=== PATIENT | female | born 1935 | race Hispanic/Latino ===

== ENCOUNTER 2016-06-21 15:37 | Emergency (ER) | payer OTHER ==
[2016-06-21 15:44] VITALS: BP 132/68; RESP 16; TEMP 97.9; BMI 28.9
[2016-06-21] MEDS ORDERED: TDAP Vaccine 0.5 mL Syr IM ONE (15:52)
--- NOTE | 2016-06-21 15:56 | ED PDOC ---
Arrival/HPI - General Chief Complaint: Trauma Time Seen by Provider: 06/21/16 15:46 Historian: Patient - History of Present Illness Narrative History of Present Illness (Text): 06/21/16 15:53 80yo female with multiple co morbidities BIBA for facial laceration s/p trauma. 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 She notes that she fell faceward. Complaining of facial pain in ED. Denies LOC, dizziness, nausea, vomiting, focal weakness. States she is not up to date with her TD vaccine. Past Medical History - Provider Review Nursing Documentation Reviewed: Yes - Cardiac Hx Cardiac Disorders: Yes Other/Comment: heart bypass - Pulmonary Hx Respiratory Disorders: No - Neurological Other/Comment: head metal plate, mennengioma - HEENT Hx HEENT Disorder: No - Renal Hx Renal Disorder: No - Endocrine/Metabolic Hx Endocrine Disorders: No - Hematological/Oncological Hx Blood Disorders: No - Integumentary Hx Dermatological Disorder: No - Musculoskeletal/Rheumatological Hx Musculoskeletal Disorders: No - Gastrointestinal Hx Gastrointestinal Disorders: No - Genitourinary/Gynecological Hx Genitourinary Disorders: No - Psychiatric Hx Psychophysiologic Disorder: No Hx Substance Use: No - Surgical History Hx Hysterectomy: Yes - Anesthesia Hx Anesthesia: Yes Hx Anesthesia Reactions: No Family/Social History - Physician Review Nursing Documentation Reviewed: Yes Family/Social History: Unknown Family HX Smoking Status: Never Smoked Hx Alcohol Use: No Hx Substance Use: No Allergies/Home Meds Allergies/Adverse Reactions: Allergies Sulfa (Sulfonamide Antibiotics) Allergy (Verified 06/21/16 15:44) RASH Home Medications: Home Meds Medication Instructions Recorded Confirmed Aspirin [Aspirin Chewable] 81 mg PO DAILY 06/21/16 06/21/16 Atorvastatin [Lipitor] 20 mg PO DAILY 06/21/16 06/21/16 Carvedilol [Coreg] 6.25 mg PO BID 06/21/16 06/21/16 Citalopram [celeXA] 10 mg PO DAILY 06/21/16 06/21/16 Cyanocobalamin (Vitamin B-12) 1,000 mcg PO DAILY 06/21/16 06/21/16 [B-12] Lisinopril [Zestril] 2.5 mg PO DAILY 06/21/16 06/21/16 metFORMIN [glucOPHAGE] 500 mg PO BID 06/21/16 06/21/16 Review of Systems - Physician Review All systems were reviewed & negative as marked: Yes - Review of Systems Constitutional: Normal Eyes: Normal ENT: Normal Respiratory: Normal Cardiovascular: Normal Gastrointestinal: Normal Genitourinary Female: Normal Musculoskeletal: Normal Skin: Laceration (Facial) Neurological: Normal Endocrine: Normal Hemo/Lymphatic: Normal Psychiatric: Normal Physical Exam Vital Signs Reviewed: Yes Vital Signs Temp Pulse Resp BP Pulse Ox 06/21/16 17:56 80 16 98 06/21/16 15:44 97.9 F 79 16 132/68 99 06/21/16 15:43 97.9 F 79 16 132/68 99 Temperature: Afebrile Blood Pressure: Normal Pulse: Regular Respiratory Rate: Normal Appearance: Positive for: Well-Appearing, Non-Toxic, Comfortable Pain Distress: None Mental Status: Positive for: Alert and Oriented X 3 - Systems Exam Head: Present: Atraumatic, Normocephalic Pupils: Present: PERRL Extroacular Muscles: Present: EOMI, Other (Right periorbital ecchymosis with swelling noted. No TTP) Conjunctiva: Present: Normal Mouth: Present: Moist Mucous Membranes Neck: Present: Normal Range of Motion Respiratory/Chest: Present: Clear to Auscultation, Good Air Exchange. No: Respiratory Distress, Accessory Muscle Use Cardiovascular: Present: Regular Rate and Rhythm, Normal S1, S2. No: Murmurs Abdomen: Present: Normal Bowel Sounds. No: Tenderness, Distention, Peritoneal Signs Back: Present: Normal Inspection Upper Extremity: Present: Normal ROM, NORMAL PULSES, Tenderness (Right proximal shoulder), Neurovascularly Intact. No: Cyanosis, Edema, Swelling, Erythema, Deformity Lower Extremity: Present: NORMAL PULSES, Normal ROM, Tenderness (LEft knee), Neurovascularly Intact. No: Edema, CALF TENDERNESS, Cyanosis, Swelling, Erythema, Deformity, Temperature Abnormalties Neurological: Present: GCS=15, CN II-XII Intact, Speech Normal Skin: Present: Warm, Dry, Normal Color, Laceration (1.7cm transverse linear laceration on upper lid/nasolabial area). No: Rashes Psychiatric: Present: Alert, Oriented x 3, Normal Insight, Normal Concentration Medical Decision Making ED Course and Treatment: 06/22/16 01:02 Pt presented to ED for states history. she was AAO x3. Neurological intact. Laceration was approximated with chromic on inner lip and proline on outer lip. She was placed on prophylactic abcx Head CT was negative Pt complained of right shoulder and left knee pain while in ED. Both right shoulder and left knee xray was negative for any acute finding Result was DW the pt. She was referred to her PMD. TRT ED for any new or worsening symptoms. - RAD Interpretation Radiology Orders: 06/21/16 15:51 HEAD W/O CONTRAST [CT] Stat 06/21/16 15:52 MAXILLOFACIAL W/O CONTRAST [CT] Stat 06/21/16 17:00 SHOULDER RIGHT [RAD] Stat 06/21/16 17:01 KNEE WITH PATELLA LEFT 3 VIEW [RAD] Stat - Medication Orders Current Medication Orders: Discontinued Medications Acetaminophen (Tylenol 325mg Tab) 650 mg PO STAT STA Stop: 06/21/16 15:53 Last Admin: 06/21/16 16:08 Dose: 650 MG MAR Pain/Vitals Document 06/21/16 16:08 [email or web address] (Rec: 06/21/16 16:09 [email or web address] [facility] Pain Reassessment Is This A Pain ReAssessment? No Sleep Is patient sleeping during reassessment? No Presence of Pain Presence of Pain Yes Pain Scale Used Pain Scale Used Numeric Location Upper or Lower Upper Pain Location Body Site lip Description Constant Intensity 8 Pain Behavior Facial Grimacing Aggravating Factors Changing Position Aggravating Factors Changing Position Cephalexin Monohydrate (Keflex) 500 mg PO STAT STA PRN Reason: Protocol Stop: 06/21/16 15:53 Last Admin: 06/21/16 16:09 Dose: 500 MG Tetanus/Reduced Diphtheria/Acell Pertussis (Boostrix Vaccine Inj) 0.5 ml IM .ONCE ONE Stop: 06/21/16 15:53 Last Admin: 06/21/16 16:09 Dose: 0.5 ML MAR Immunization Data Document 06/21/16 16:09 [email or web address] (Rec: 06/21/16 16:10 [email or web address] [facility] [place] Immunization Data Vaccine [employer] Vaccine Lot Number [id number] Vaccine Expiration Date 06/05/18 Site Given Left Deltoid Route Intramuscular Immunization Units ml Procedure: Wound Repair - Consent Obtained Consent obtained: Verbal - Performed by Performed by: Mid-level Provider - Indications Indication(s):: Laceration - Location Location:: Lip Shape:: Linear Dimensions Length cm: 1.7 - Anesthetic Technique Local/Regional Anesthetic:: Lidocaine 1% w/epi (5ml) - Debris Debris:: None - Irrigated Irrigated with ml of normal saline: 50 - Complexity Complexity:: Intermediate (2 layer) - Muscle repiar layer closed with Muscle repair layer closed with:: # (12), Size (3chromic and 6proline), Type ( chromic and nylon), Technique (interrupted), Wound well approximated, Abx ointment applied, Tetanus ordered - Patient tolerated procedure Patient Tolerated Procedure:: Well Disposition/Present on Arrival - Present on Arrival Any Indicators Present on Arrival: No History of DVT/PE: No History of Uncontrolled Diabetes: No Urinary Catheter: No History of Decub. Ulcer: No History Surgical Site Infection Following: None - Disposition Have Diagnosis and Disposition been Completed?: Yes Diagnosis: Facial laceration, Facial contusion, Shoulder pain, Knee pain Disposition: HOME/ ROUTINE Disposition Time: 17:40 Patient Plan: Discharge Condition: STABLE Discharge Instructions (ExitCare): Facial Laceration (ED), Care For Your Stitches (ED), Knee Pain (ED), Shoulder Pain (ED) Additional Instructions: Keep wound clean and dry Follow up with your doctor in 5days for sutures removal Return to ED for redness, purulent discharge, any other complaint. Prescriptions: Cephalexin [cephalexin] 500 mg PO TID #21 cap traMADol [Ultram] 50 mg PO TID #10 tab Referrals: Ernie Bojorquez, [Primary Care Provider] - Follow up with primary
--- NOTE | 2016-06-21 17:19 | CT ---
PROCEDURE: CT HEAD WITHOUT CONTRAST. HISTORY: s/p head injury COMPARISON: None available. TECHNIQUE: Axial computed tomography images were obtained through the head/brain without intravenous contrast. Radiation dose: Total exam DLP = 725 mGy-cm. This CT exam was performed using one or more of the following dose reduction techniques: Automated exposure control, adjustment of the mA and/or kV according to patient size, and/or use of iterative reconstruction technique. FINDINGS: HEMORRHAGE: No intracranial hemorrhage. BRAIN: No mass effect or edema. There is chronic encephalomalacia in the left parietal lobe adjacent to the craniotomy site. VENTRICLES: Unremarkable. No hydrocephalus. CALVARIUM: There is a large craniotomy. There has been a cranioplasty with methylmethacrylate. There is a large amount of small air pockets within this cement. This is of doubtful clinical significance. There is no inflammation in the adjacent scalp to suggest acute infection. PARANASAL SINUSES: Unremarkable as visualized. No significant inflammatory changes. MASTOID AIR CELLS: Unremarkable as visualized. No inflammatory changes. OTHER FINDINGS: None. IMPRESSION: Left parietal encephalomalacia. Extensive left-sided cranioplasty. No acute findings
--- NOTE | 2016-06-21 17:23 | CT ---
PROCEDURE: CT MAXILLOFACIAL BONES WITHOUT CONTRAST HISTORY: s/p trauma COMPARISON: None TECHNIQUE: Contiguous axial CT images of the maxillofacial bones were obtained. Coronal and sagittal reformats were generated. Radiation dose: Total exam DLP = 782 mGy-cm. This CT exam was performed using one or more of the following dose reduction techniques: Automated exposure control, adjustment of the mA and/or kV according to patient size, and/or use of iterative reconstruction technique. FINDINGS: NASAL BONES: Unremarkable. ORBITS: Unremarkable. PARANASAL SINUSES/ MASTOIDS: Clear. MAXILLA: Unremarkable. MANDIBLE/ TEMPOROMANDIBULAR JOINTS: Unremarkable. SKULL BASE: Unremarkable. TEMPORAL BONES: Middle ears and mastoid grossly unremarkable. OTHER FINDINGS: None. IMPRESSION: No acute fracture
[2016-06-21 17:57] VITALS: PULSE 80; O2SAT 98
--- NOTE | 2016-06-22 10:50 | RAD ---
PROCEDURE: Radiographs of the Right Shoulder HISTORY: shoulder pain COMPARISON: No prior. FINDINGS: BONES: Normal. No fracture. JOINTS: Normal. Glenohumeral and acromioclavicular joints preserved. No osteoarthritis. SOFT TISSUES: Normal. OTHER FINDINGS: None. IMPRESSION: Normal radiographs of the right shoulder.
--- NOTE | 2016-06-22 10:51 | RAD ---
PROCEDURE: Left Knee Radiographs. HISTORY: Pain. COMPARISON: None. FINDINGS: BONES: Normal. No fracture. JOINTS: Normal. No osteoarthritis. JOINT EFFUSION: None. OTHER FINDINGS: None. IMPRESSION: Normal radiographs of the left knee.
== END 2016-06-21 17:57 | disposition home or self-care (01) ==
LOC: ED 15:37
DX: S01.511A Laceration without foreign body of lip, initial encounter (principal); W01.0XXA Fall on same level from slipping, tripping and stumbling without subsequent striking against object, initial encounter; Y93.01 Activity, walking, marching and hiking; Y92.480 Sidewalk as the place of occurrence of the external cause; M25.511 Pain in right shoulder; M25.562 Pain in left knee; Z23 Encounter for immunization

== ENCOUNTER 2016-08-17 17:10 | Emergency (ER) | payer OTHER ==
[2016-08-17 17:56] VITALS: TEMP 97.8; O2SAT 100; BMI 22.0
--- NOTE | 2016-08-17 18:02 | ED PDOC ---
Arrival/HPI - General Historian: Patient - General Chief Complaint: Trauma Time Seen by Provider: 08/17/16 17:32 - History of Present Illness Narrative History of Present Illness (Text): 08/17/16 18:03 Patient reports sustaining head and facial trauma when she fell on uneven sidewalk prior to arrival. Patient states that a few months ago she was seen at this emergency room and treated for a similar incident. At the present time she is complaining of abrasions to her face and her right knee, is complaining of pain to her right wrist as well. Otherwise: (-) loss of consciousness, (-) nausea, (-) vomiting, (-) severe headache, (-) other injury, (-) neck pain, (-) subjective neurologic deficit, (+) anticoagulants - takes daily asa. Has history of prior significant head injury. (Deo CAROLINA,Halima Aaron) Past Medical History - Provider Review Nursing Documentation Reviewed: Yes - Tetanus Immunization Tetanus Immunization: Up to Date (received on 06/21/16 here in this ER) - Cardiac Hx Cardiac Disorders: Yes Other/Comment: heart bypass - Pulmonary Hx Respiratory Disorders: No - Neurological Other/Comment: head metal plate, mennengioma - HEENT Hx HEENT Disorder: No - Renal Hx Renal Disorder: No - Endocrine/Metabolic Hx Endocrine Disorders: No - Hematological/Oncological Hx Blood Disorders: No - Integumentary Hx Dermatological Disorder: No - Musculoskeletal/Rheumatological Hx Musculoskeletal Disorders: No - Gastrointestinal Hx Gastrointestinal Disorders: No - Genitourinary/Gynecological Hx Genitourinary Disorders: No - Psychiatric Hx Psychophysiologic Disorder: No Hx Substance Use: No - Surgical History Hx Coronary Artery Bypass Graft: Yes (1990) Hx Hysterectomy: Yes - Anesthesia Hx Anesthesia: Yes Hx Anesthesia Reactions: No Hx Malignant Hyperthermia: No Family/Social History - Physician Review Nursing Documentation Reviewed: Yes Family/Social History: No Known Family HX Smoking Status: Never Smoked Hx Alcohol Use: No Hx Substance Use: No Allergies/Home Meds Allergies/Adverse Reactions: Allergies Sulfa (Sulfonamide Antibiotics) Allergy (Verified 08/17/16 17:13) RASH Home Medications: Home Meds Medication Instructions Recorded Confirmed Aspirin [Aspirin Chewable] 81 mg PO DAILY 06/21/16 08/17/16 Atorvastatin [Lipitor] 20 mg PO DAILY 06/21/16 08/17/16 Carvedilol [Coreg] 6.25 mg PO BID 06/21/16 08/17/16 Citalopram [celeXA] 10 mg PO DAILY 06/21/16 08/17/16 Cyanocobalamin (Vitamin B-12) 1,000 mcg PO DAILY 06/21/16 08/17/16 [B-12] Lisinopril [Zestril] 2.5 mg PO DAILY 06/21/16 08/17/16 metFORMIN [glucOPHAGE] 500 mg PO BID 06/21/16 08/17/16 Review of Systems - Review of Systems Constitutional: Normal. absent: Fatigue, Weight Change, Fevers Respiratory: Normal. absent: SOB, Cough, Sputum Cardiovascular: Normal. absent: Chest Pain, Palpitations, Edema Gastrointestinal: Normal. absent: Abdominal Pain, Stool Changes, Appetite Changes Musculoskeletal: Normal, Arthralgias. absent: Back Pain, Neck Pain Skin: Normal. absent: Rash, Pruritis, Skin Lesions Neurological: Normal. absent: Headache, Dizziness, Focal Weakness Physical Exam - Physical Exam Narrative Physical Exam (Text): 08/17/16 18:05 GENERAL APPEARANCE: Patient is awake, alert, oriented x 3, in no acute distress. SKIN: Warm, dry; (-) cyanosis, (+) abrasions to the nasal bridge and the anterior R knee. HEAD: (+) Mild swelling, (-) tenderness of the nasal bridge, with no palpable bony defect. EYES: (-) conjunctival pallor, (-) scleral icterus, (-) nystagmus. ENMT: Mucous membranes moist. (-) Keyes's sign. Nose: (-) tenderness, (-) rhinorrhea. No oral trauma. Pharynx clear. Airway patent: (-) stridor. Full ROM of mandible without pain. NECK: (-) tenderness, (-) stiffness, (-) lymphadenopathy. CHEST AND RESPIRATORY: (-) chest wall tenderness. Lungs: (-) rales, (-) rhonchi, (-) wheezes; breath sounds equal bilaterally. HEART AND CARDIOVASCULAR: (-) irregularity; (-) murmur, (-) gallop. ABDOMEN AND GI: Soft; (-) tenderness. BACK: (-) tenderness. EXTREMITIES: (+) tenderness, edema and ecchymosis to the dorsal R hand over the 5th metacarpal, distal sensation intact, cap refill < 2 sec, rest of the extremities : (-) deformity, (-) tenderness, (-) limitation of motion NEURO AND PSYCH: GCS=15. Mental status as above. 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 EOMI. (-) facial asymmetry. Tongue and uvula midline. Strength 5/5 in all extremities. No gross sensory deficits. DTRs symmetric. (Deo ACROLINA,Halima Aaron) Vital Signs Temp Pulse Resp BP Pulse Ox 08/17/16 19:51 80 16 143/71 100 08/17/16 17:20 97.8 F 79 14 119/56 L 100 Medical Decision Making ED Course and Treatment: I was available for consultation during PA evaluation. The chart was reviewed by me, and I agree with disposition. The documented history was done by the physician instrument tester. The documented physical exam was done by the physician instrument tester. The documented procedures were done by the physician instrument tester. ( Francisco Guzman) 08/17/16 18:06 81 yo F s/p trip and fall c/o abrasions to the nasal bridge, R knee and R hand pain. Previous medical records reviewed. Plan: - XR R hand - XR R knee - CT head - Tylenol po 08/17/16 19:19 XR R hand : Nondisplaced comminuted fracture of the distal fifth metacarpal, no dislocation, as read by PA XR R knee : no fracture, no dislocation, as read by PA Patient advised that official radiology read of XR is still pending and will call the patient if there is any discrepancy within [address] head results showed no acute findings. Diagnostic results were discussed with the patient in great detail. Orthoglass radial gutter splint applied and adjusted by PA. Neurovascular intact post splint application. Based on history, exam and diagnostic results plan will be for patient follow- up. Patient states she fully agrees with and understands discharge instructions. States that she agrees with the plan and disposition. Verbalized and repeated discharge instructions and plan. I have given the patient opportunity to ask any additional questions. Follow up with primary care physician and ortho referral in 1-2 days without fail. Return to the emergency room at any time for any new or worsening symptoms. (Desouza Halima CAROLINA) - RAD Interpretation Narrative RAD Interpretations (Text): 08/17/16 19:19 CT HEAD: HEMORRHAGE: No intracranial hemorrhage. BRAIN: Again seen is [id number] encephalomalacia at the left parietal lobe adjacent to left cranioplasty. Mild atrophy VENTRICLES: Unremarkable. No hydrocephalus. CALVARIUM: Large left-sided cranioplasty. PARANASAL SINUSES: Unremarkable as visualized. No significant inflammatory changes. MASTOID AIR CELLS: Unremarkable as visualized. No inflammatory changes. OTHER FINDINGS: None. IMPRESSION: No evidence of acute intracranial hemorrhage intracranial collection mass effect or midline shift. No significant interval change since the previous exam as described above ( Halima Desouza PA-C) Radiology Orders: 08/17/16 17:44 HEAD W/O CONTRAST [CT] Stat HAND RIGHT 3 VIEWS [RAD] Stat KNEE RIGHT 2 VIEWS (AP & LAT) [RAD] Stat - Medication Orders Current Medication Orders: Discontinued Medications Acetaminophen (Tylenol 325mg Tab) 650 mg PO STAT STA Stop: 08/17/16 17:45 Last Admin: 08/17/16 18:15 Dose: 650 mg - PA / IMPLEMENTATION PROJECT MANAGER / Resident Statement / has reviewed & agrees with the documentation as recorded. Disposition/Present on Arrival - Present on Arrival Any Indicators Present on Arrival: No History of DVT/PE: No History of Uncontrolled Diabetes: No Urinary Catheter: No History of Decub. Ulcer: No History Surgical Site Infection Following: None - Disposition Have Diagnosis and Disposition been Completed?: Yes Disposition Time: 19:30 Patient Plan: Discharge - Disposition Diagnosis: Hand fracture, right, Facial trauma, Fall, Right knee injury Disposition: HOME/ ROUTINE Condition: GOOD Discharge Instructions (ExitCare): Hand Fracture (ED), Head Injury (ED), Abrasion (ED) Print Language: BENINESE Additional Instructions: Thank you for letting us take care of you today. You were treated for facial trauma, abrasions, right hand fracture, right knee injury, status post trip and fall. The emergency medical care you received today was directed at your acute symptoms. It may take several days for your symptoms to resolve. Return to the Emergency Department if your symptoms worsen, do not improve, or if you have any other problems. Please contact your doctor in 2 days for re-evaluation and follow up / or call one of the physicians/clinics you have been referred to that are listed on the Patient Visit Information form that is included in your discharge packet. Bring any paperwork you were given at discharge with you along with any medications you are taking to your follow up visit. Our treatment cannot replace ongoing medical care by a primary care provider (PCP) outside of the emergency department. Thank you for allowing the [facility] team to be part of your care today. Referrals: Arpit Purcell MD [Staff Provider] - Follow up with primary
--- NOTE | 2016-08-17 18:41 | CT ---
PROCEDURE: CT HEAD WITHOUT CONTRAST. HISTORY: trauma COMPARISON: Comparison is made to the previous study dated 06/21/2016 TECHNIQUE: Axial computed tomography images were obtained through the head/brain without intravenous contrast. Radiation dose: Total exam DLP = 677.45 mGy-cm. This CT exam was performed using one or more of the following dose reduction techniques: Automated exposure control, adjustment of the mA and/or kV according to patient size, and/or use of iterative reconstruction technique. FINDINGS: HEMORRHAGE: No intracranial hemorrhage. BRAIN: Again seen is [id number] encephalomalacia at the left parietal lobe adjacent to left cranioplasty. Mild atrophy VENTRICLES: Unremarkable. No hydrocephalus. CALVARIUM: Large left-sided cranioplasty. PARANASAL SINUSES: Unremarkable as visualized. No significant inflammatory changes. MASTOID AIR CELLS: Unremarkable as visualized. No inflammatory changes. OTHER FINDINGS: None. IMPRESSION: No evidence of acute intracranial hemorrhage intracranial collection mass effect or midline shift. No significant interval change since the previous exam as described above.
[2016-08-17 19:52] VITALS: BP 143/71; PULSE 80; RESP 16
--- NOTE | 2016-08-18 10:06 | RAD ---
PROCEDURE: Right Wrist Radiographs. HISTORY: pain COMPARISON: None. FINDINGS: BONES: Normal. No fracture. JOINTS: Diffuse distal interphalangeal joint space narrowing and spur formation. SOFT TISSUES: Normal. OTHER FINDINGS: None. IMPRESSION: Diffuse mild to moderate degenerative changes. No fracture.
--- NOTE | 2016-08-18 10:10 | RAD ---
HISTORY: pain COMPARISON: No prior FINDINGS: BONES: Normal. No fracture. JOINTS: Normal. No osteoarthritis. SOFT TISSUE: Normal. OTHER FINDINGS: None . IMPRESSION: Normal Bone Xray.
== END 2016-08-17 20:12 | disposition home or self-care (01) ==
LOC: ED 17:10
DX: S62.396A Other fracture of fifth metacarpal bone, right hand, initial encounter for closed fracture (principal); S09.90XA Unspecified injury of head, initial encounter; S89.91XA Unspecified injury of right lower leg, initial encounter; W01.0XXA Fall on same level from slipping, tripping and stumbling without subsequent striking against object, initial encounter; Y93.89 Activity, other specified; Y92.480 Sidewalk as the place of occurrence of the external cause

== ENCOUNTER 2016-09-04 15:13 | Emergency (ER) | payer OTHER ==
[2016-09-04 15:15] VITALS: BMI 28.9
[2016-09-04 15:33] VITALS: BP 145/81; PULSE 74; RESP 19; TEMP 98.2; O2SAT 99
--- NOTE | 2016-09-04 15:39 | ED PDOC ---
Arrival/HPI - General Chief Complaint: Finger,Hand,&Wrist Time Seen by Provider: 09/04/16 15:16 Historian: Patient - History of Present Illness Narrative History of Present Illness (Text): 09/04/16 16:12 81yo female present for evaluation of right hand. states she was seen here on and told she have right hand fracture. she notes that she picked up the result today and it was read negative for fracture. she have a splint in place. states she never saw orthopedist and not sure what to do. States cali hand is still swollen. Denies any new trauma, focal weakness, any other complaint. Past Medical History - Provider Review Nursing Documentation Reviewed: Yes - Infectious Disease Hx of Infectious Diseases: None - Tetanus Immunization Tetanus Immunization: Up to Date (received on 06/21/16 here in this ER) - Reproductive Menopause: Yes - Cardiac Hx Cardiac Disorders: Yes Hx Hypertension: Yes Other/Comment: heart bypass - Pulmonary Hx Respiratory Disorders: No - Neurological Hx Neurological Disorder: Yes Other/Comment: head metal plate, mennengioma - HEENT Hx HEENT Disorder: No - Renal Hx Renal Disorder: No - Endocrine/Metabolic Hx Endocrine Disorders: No - Hematological/Oncological Hx Blood Disorders: No - Integumentary Hx Dermatological Disorder: No - Musculoskeletal/Rheumatological Hx Musculoskeletal Disorders: No - Gastrointestinal Hx Gastrointestinal Disorders: No - Genitourinary/Gynecological Hx Genitourinary Disorders: No - Psychiatric Hx Psychophysiologic Disorder: No Hx Substance Use: No - Surgical History Hx Coronary Artery Bypass Graft: Yes (1990) Hx Hysterectomy: Yes - Anesthesia Hx Anesthesia: Yes Hx Anesthesia Reactions: No Hx Malignant Hyperthermia: No Family/Social History - Physician Review Nursing Documentation Reviewed: Yes Family/Social History: Unknown Family HX Smoking Status: Never Smoked Hx Alcohol Use: No Hx Substance Use: No Allergies/Home Meds Allergies/Adverse Reactions: Allergies Sulfa (Sulfonamide Antibiotics) Allergy (Verified 09/04/16 15:23) RASH Home Medications: Home Meds Medication Instructions Recorded Confirmed Aspirin [Aspirin Chewable] 81 mg PO DAILY 06/21/16 09/04/16 Atorvastatin [Lipitor] 20 mg PO DAILY 06/21/16 09/04/16 Carvedilol [Coreg] 6.25 mg PO BID 06/21/16 09/04/16 Citalopram [celeXA] 10 mg PO DAILY 06/21/16 09/04/16 Cyanocobalamin (Vitamin B-12) 1,000 mcg PO DAILY 06/21/16 09/04/16 [B-12] Lisinopril [Zestril] 2.5 mg PO DAILY 06/21/16 09/04/16 metFORMIN [glucOPHAGE] 500 mg PO BID 06/21/16 09/04/16 Citalopram [celEXA] 20 mg PO DAILY 09/04/16 09/04/16 Review of Systems - Physician Review All systems were reviewed & negative as marked: Yes - Review of Systems Constitutional: Normal Eyes: Normal ENT: Normal Respiratory: Normal Cardiovascular: Normal Gastrointestinal: Normal Genitourinary Female: Normal Musculoskeletal: Arthralgias (Right hand fracture) Skin: Normal Neurological: Normal Endocrine: Normal Hemo/Lymphatic: Normal Psychiatric: Normal Physical Exam Vital Signs Reviewed: Yes Vital Signs Temp Pulse Resp BP Pulse Ox 09/04/16 15:23 98.2 F 74 19 145/81 99 Temperature: Afebrile Blood Pressure: Normal Pulse: Regular Respiratory Rate: Normal Appearance: Positive for: Well-Appearing, Non-Toxic, Comfortable Pain Distress: None Mental Status: Positive for: Alert and Oriented X 3 - Systems Exam Head: Present: Atraumatic, Normocephalic Pupils: Present: PERRL Extroacular Muscles: Present: EOMI Conjunctiva: Present: Normal Mouth: Present: Moist Mucous Membranes Neck: Present: Normal Range of Motion Respiratory/Chest: Present: Clear to Auscultation, Good Air Exchange. No: Respiratory Distress, Accessory Muscle Use Cardiovascular: Present: Regular Rate and Rhythm, Normal S1, S2. No: Murmurs Abdomen: Present: Normal Bowel Sounds. No: Tenderness, Distention, Peritoneal Signs Back: Present: Normal Inspection Upper Extremity: Present: Other (Ulnar gutter splint noted in place. Pt able to flex exposed fingers. No cynaosis. No tenderness of finger tips noted). No: Cyanosis, Edema Lower Extremity: Present: Normal Inspection. No: Edema Neurological: Present: GCS=15, CN II-XII Intact, Speech Normal Skin: Present: Warm, Dry, Normal Color. No: Rashes Psychiatric: Present: Alert, Oriented x 3, Normal Insight, Normal Concentration Medical Decision Making ED Course and Treatment: 09/04/16 16:18 Pt's imaging from 08/17/16 was reviewed and possible right 5th MCP fracture was noted, although xray was read as negative. Case was DW Dr. anaya who is manufacturing plant controller and he request that i call Dr. Purcell who was manufacturing plant controller that day. Call was placed to Dr. Purcell, he was in OR. Pending call back. This was DW the pt. Dr. Purcell information was given to the pt. she was advised to f/u with Dr. Purcell. she notes that she might f/u with Dr. Wilson since she knows Dr. Wilson. she was advised to f/u with either orthopedist. She have her imaging CD. Advised TRT ED if she can't get in touch with either orthopedist. Disposition/Present on Arrival - Present on Arrival Any Indicators Present on Arrival: No History of DVT/PE: No History of Uncontrolled Diabetes: No Urinary Catheter: No History of Decub. Ulcer: No History Surgical Site Infection Following: None - Disposition Have Diagnosis and Disposition been Completed?: Yes Diagnosis: Hand fracture Disposition: HOME/ ROUTINE Disposition Time: 16:10 Patient Plan: Discharge Patient Problems: Current Active Problems Problem Status Onset Hand fracture Acute Condition: STABLE Discharge Instructions (ExitCare): Hand Fracture (ED) Additional Instructions: Follow up with orthopedist Return to ED for any new or worsening symptoms Referrals: Ernie Bojorquez, [Primary Care Provider] - Follow up with primary Arpit Purcell MD [Staff Provider] - Follow up with primary
== END 2016-09-04 16:12 | disposition home or self-care (01) ==
LOC: ED 15:13
DX: S62.396D Other fracture of fifth metacarpal bone, right hand, subsequent encounter for fracture with routine healing (principal); W01.0XXD Fall on same level from slipping, tripping and stumbling without subsequent striking against object, subsequent encounter